=== PATIENT | female | born 1995 | race Two or more races ===

== ENCOUNTER 2020-09-13 11:27 | Emergency (ER) | payer MEDICAID, OTHER ==
[~2020-09-13] VITALS: Ht 152.4 cm; Wt 56.2 kg
[2020-09-13 11:32] VITALS: BP 124/66
[2020-09-13] MEDS ORDERED: IBUPROFEN 600 MG TAB PO ONE (13:15)
== END 2020-09-13 13:21 | disposition home or self-care (01) ==
LOC: ER 11:27
DX: S16.1XXA Strain of muscle, fascia and tendon at neck level, initial encounter (principal); S39.012A Strain of muscle, fascia and tendon of lower back, initial encounter; S80.02XA Contusion of left knee, initial encounter; F12.10 Cannabis abuse, uncomplicated; V43.52XA Car driver injured in collision with other type car in traffic accident, initial encounter; Y93.89 Activity, other specified; Y92.488 Other paved roadways as the place of occurrence of the external cause; Y99.8 Other external cause status
CPT/HCPCS: 72100; 73562